=== PATIENT | male | born 1985 | race Two or more races ===

== ENCOUNTER 2021-06-19 12:37 | Emergency (ER) | payer OTHER ==
[~2021-06-19] VITALS: Ht 175.3 cm; Wt 94.3 kg
== END 2021-06-19 15:55 | disposition home or self-care (01) ==
LOC: ER 12:37
DX: M54.59 Other low back pain (principal)

== ENCOUNTER 2022-10-21 10:21 | Emergency (ER) | payer OTHER ==
[~2022-10-21] VITALS: Ht 175.3 cm; Wt 97.1 kg
[~2022-10-21 10:21] MED LIST: OSEL75CA PO
== END 2022-10-21 16:32 | disposition home or self-care (01) ==
LOC: ER 10:22
DX: S39.92XA Unspecified injury of lower back, initial encounter (principal); W18.30XA Fall on same level, unspecified, initial encounter; Y93.9 Activity, unspecified; Y92.9 Unspecified place or not applicable; Y99.9 Unspecified external cause status

== ENCOUNTER 2024-08-11 12:28 | Emergency (ER) | payer OTHER ==
[~2024-08-11] VITALS: Ht 175.3 cm; Wt 98.0 kg
[2024-08-11] MEDS ORDERED: ADDERALL 10 MG10 MG (12:43)
[2024-08-11] MEDS ORDERED: CEFTRIAXONE SODIUM 1,000 MG VIAL IM ONE (13:00)
== END 2024-08-11 13:27 | disposition home or self-care (01) ==
LOC: ER 12:31
DX: L08.9 Local infection of the skin and subcutaneous tissue, unspecified (principal)